=== PATIENT | male | born 1990 | race African-American/Black ===

== ENCOUNTER 2017-08-16 17:33 | Emergency (ER) | payer MEDICAID ==
[~2017-08-16] VITALS: Ht 172.7 cm; Wt 61.0 kg
[2017-08-16] MEDS ORDERED: ACETAMINOPHEN 325MG TABLET PO ONE (19:00)
[2017-08-16 19:19] LABS: BASOPHILS % 1.6 % (0.0-2.0); EOSINOPHILS % 0.4 % (0.0-5.0); HEMATOCRIT. 30.6 % (42.0-52.0); HEMOGLOBIN. 8.7 g/dL (14.0-18.0); LYMPHOCYTES % 14.3 % (20.0-50.0); MEAN CORPUSCULAR HEMOGLOBIN 16.5 pg (28.0-32.0); MEAN CORPUSCULAR VOLUME 57.8 fL (80.0-94.0); MEAN PLATELET VOLUME 8.8 fl (7.4-10.4); MONOCYTES % 6.8 % (2.0-8.0); NEUTROPHILS % 76.9 % (40.0-76.0); PLATELET 527 x1000/uL (130-400); RED BLOOD CELL COUNT 5.29 mill/uL (4.7-6.1); RED CELL DISTRIBUTION WIDTH 20.5 % (11.6-14.6)
[2017-08-16 19:26] LABS: CHLORIDE 104 mEq/L (98-107)
[2017-08-16 19:28] LABS: INR 1.1; PROTHROMBIN TIME 11.1 sec (9.4-11.6)
[2017-08-16 19:38] LABS: PLATELET ESTIMATE INCREASED
[2017-08-17 04:10] VITALS: BP 110/79
[2017-08-17] MEDS ORDERED: KETOROLAC 30MG/ML VIAL IV STA (04:10)
[2017-08-17] MEDS ORDERED: SODIUM CHLORIDE 0.9% 1,000 ML IV ONE (04:10)
[2017-08-17] MEDS ORDERED: ONDANSETRON HCL 4MG/2ML VIAL IV STA (04:10)
[2017-08-17 07:25] LABS: CLARITY URINE CLOUDY (CLEAR); COLOR URINE YELLOW (YELLOW); KETONES URINE 2+ (NEGATIVE); LEUKOCYTE ESTERASE URINE NEGATIVE (NEGATIVE); NITRITE URINE NEGATIVE (NEGATIVE); OCCULT BLOOD URINE 3+ (NEGATIVE); PROTEIN URINE 1+ (NEGATIVE); SPECIFIC GRAVITY URINE 1.026 (1.005-1.030); UROBILINOGEN URINE 0.2 E.U./dL (0.2-1.0)
== END 2017-08-17 07:05 | disposition home or self-care (01) ==
LOC: ER 17:33
DX: N20.0 Calculus of kidney (principal); D50.9 Iron deficiency anemia, unspecified; R10.31 Right lower quadrant pain
CPT/HCPCS: 36415; 74176; 76857; 80053; 81003; 83690; 85025; 85610; 87086; 99285; J7030; Z7610; J1885; J2405